=== PATIENT | female | born 1970 | race Caucasian/White ===

== ENCOUNTER 2016-09-25 11:58 | Inpatient (IN) | payer BC, OTHER ==
[~2016-09-25] VITALS: Ht 180.3 cm; Wt 172.4 kg
--- NOTE | ~2016-09-25 | HC ---
[facility] [place] [address] CONSULTATION Name: RUSS CROOKS Room #: 446-P ADM IN M.R.#: [id number] Admission: 09/25/16 Attend Phys: Pierre Payne MD Discharge: Date of : 68 Report #: [id number] THIS REPORT FOR: //name// CC: [facility] physician/PCP Pierre Payne REASON FOR CONSULTATION: I was asked by Dr. Pierre Payne to evaluate the patient concerning infected pancreatic pseudocyst. 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 Six weeks ago, she developed acute abdominal pain and was evaluated at [facility] where she was diagnosed with acute pancreatitis. 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 She developed infected pancreatic pseudocyst. She had needle aspiration on 2 attempts with confirmation of bacteria. She did not know the organisms. She has been treated with meropenem. She was told by infectious diseases that she would be on this medication for at least 3 weeks. The exact timing is not clear to me at this point. She denied any fever, chills or sweats. She has had aversion to food. She has been receiving TPN for support. Because of this issue, she was transferred to [facility] from [facility] for a J-tube placement. Tube was placed yesterday. Postoperatively, she has been fairly stable with 1 low grade fever episode. No cough or sputum production. Continues to have abdominal pain and tenderness. She has indwelling Mahajan catheter postoperatively. Before this, she was voiding without issue. Stools have been minimal. No rashes. She did develop some pressure wounds to her feet, which were superficial. REVIEW OF SYSTEMS: Otherwise, unremarkable. She does have upper extremity PICC. PAST MEDICAL HISTORY: MS, obesity, rosacea, hypertension, migraine headaches. ALLERGIES: DEXAMETHASONE with acne. MEDICATIONS: As noted on APR including meropenem. FAMILY HISTORY: Noncontributory. 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 PHYSICAL EXAMINATION: VITAL SIGNS: Afebrile, hemodynamically stable. GENERAL: She is alert, cooperative and pleasant, sitting up in a chair, conversant, morbidly obese. IV access unremarkable. CHEST: Clear. HEART: Regular, without murmur. [address] [address] CONSULTATION Name: RUSS CROOKS Room #: 446- ADM IN M.R.#: [id number] Admission: 09/25/16 Attend Phys: Pierre Payne MD Discharge: Date of : 68 Report #: [id number] ABDOMEN: Diffusely tender, mostly in the epigastric region. Left abdomen jejunostomy feeding tube was intact. EXTREMITIES: Unremarkable. Indwelling Mahajan catheter. LABORATORY STUDIES: From September 21, creatinine 0.6, liver function tests normal. From September 19, hemoglobin 8.2, white count 5.4, platelet count 249,000. Stool for VRE was positive as a screening. IMPRESSION: A 45-year-old with what appears to be necrotizing pancreatitis, complicated by infected pseudocyst, very slow to improve. I am yet to confirm that she actually had necrotizing pancreatitis. Issue now is duration of her antibiotic coverage. She now has a jejunostomy feeding tube, which should help for nutritional status. Having been at least 2-3 weeks since her last imaging study, I would recommend that we repeat MRI scan and compare to her previous study. We will follow up laboratory studies including CBC, CMP, pancreatic enzymes. Have called for her microbiology reports from [facility] and we will determine length of therapy. <ELECTRONICALLY SIGNED> By: Maykel Meléndez MD 09/27/16 0951 1222 1303 Maykel Meléndez MD /nt
--- NOTE | ~2016-09-25 | O ---
[facility] [place] [address] OPERATIVE REPORT Name: RUSS CROOKS Room #: 446-P ADM IN M.R.#: [id number] Admission: 09/25/16 Attend Phys: Charlene Lo Discharge: Date of : 68 Report #: [id number] THIS REPORT FOR: //name// CC: Ovidio Meléndez [facility] physician/PCP DATE OF SERVICE: 09/30/2016 PREOPERATIVE DIAGNOSIS: Huge pancreatic pseudocyst. POSTOPERATIVE DIAGNOSIS: Huge pancreatic pseudocyst with necrotic fat at the base of the pseudocyst. PROCEDURES PERFORMED: Cystogastrostomy and debridement of necrotic fat through a mini laparotomy incision. SURGEON: Pierre Payne M.D. ANESTHESIA: General. COMPLICATIONS: None. ESTIMATED BLOOD LOSS: 70 mL. DESCRIPTION OF PROCEDURE: The patient was put under general anesthesia, abdomen was prepped and draped in a sterile fashion. The mass was palpable, located in the epigastrium. The incision was made about two fingerbreadths beneath the costal margin. This was a subcostal incision made more on the left side. The incision was about 3 inches in length. After incising through the skin and subcutaneous tissue, the anterior rectus sheath was incised sharply with knife, muscle was freed and cauterized over a Army Danube. There was a vessel that was bleeding. This was ligated with 3-0 Vicryl tie. Posterior sheath was then opened, the peritoneum was quite thick and it did take a while to get through the peritoneum. Once I went through the peritoneum, there was ascites as yellowish fluid. The stomach was visualized. The upper part was actually free. Inferiorly to the incision, there were adhesions. I could see the distal third of the stomach easily. I did not free the adhesions lower down. The ascitic fluid was suctioned out. A 3-0 Nurolon suture placed on the area between the body and the antrum. The serosa was then incised over the anterior wall. An opening was made in the anterior wall of the stomach measuring about 2 cm. Cautery was used to obtain hemostasis. The posterior wall was then identified, the pseudocyst was palpated posterior to this. A needle was placed through the posterior gastric wall into the pseudocyst and the typical grayish fluid was found. The fluid was sent for culture and also amylase level. The posterior mucosal wall was cauterized. The wall was then spread with hemostat all the way [facility] [address] [place] [address] OPERATIVE REPORT Name: DAKSHARUSS Room #: 446-P ADM IN M.R.#: [id number] Admission: 09/25/16 Attend Phys: Charlene Lo Discharge: Date of : 68 Report #: [id number] through the back wall of the stomach and then through the pseudocyst wall. A large amount of fluid was evacuated through this opening and just kept pouring out. This was suctioned out. After the fluid was taken out, the wall was opened up to about 4 cm opening; 3-0 PDS was placed along the wall and the suture was performed of the full thickness of the gastric wall and the pseudocyst wall. Locking suture may need for hemostasis. The pseudocyst in the posterior gastric wall has fused to each other. There was quite a bit of necrotic debris that was visualized. This was seen on MRI. I started out removing the looser stuff and then directly under the opening there was a thick fatty necrotic area that eventually I was able to free up and remove it. Really no bleeding was found during this procedure. The pseudocyst cavity was completely evacuated and pretty well cleaned out. Irrigation was performed. The cystogastrostomy is well formed. The anterior wall of the stomach was then closed. A 3-0 Vicryl was then used to close the anterior wall in a seromuscular mucosal layer. This was a running 3-0 Vicryl suture. A 3-0 Nurolon was then sutured on the anterior wall in a seromuscular layer. The right upper quadrant was irrigated and cleaned. The posterior fascia was closed with 0 PDS in running fashion. The anterior fascia and the midline fascia was closed with 0 Prolene in a running fashion. Skin was irrigated and then closed with 4-0 PDS. Dermabond was used. The patient was awakened and taken to recovery room. He tolerated the procedure well. By: [id number] Pierre Payne MD /nt
--- NOTE | ~2016-09-25 | D ---
[facility] [place] [address] DISCHARGE SUMMARY Name: DAKSHARUSS Room #: 446-P [facility] IN M.R.#: [id number] Admission: 09/25/16 Attend Phys: Charlene Lo Discharge: 10/08/16 Date of : 68 Report #: [id number] THIS REPORT FOR: //name// CC: Arun Meléndez [facility] physician/PCP DATE OF SERVICE: 10/08/2016 FINAL DIAGNOSES: 1. Pancreatic pseudocyst. 2. Anemia of chronic disease. 3. Diarrhea. 4. Morbid obesity. HOSPITAL COURSE: The patient was admitted with abdominal pain. She had completed a course of treatment with antibiotics and bowel rest for pancreatic pseudocyst diagnosed at an outlying hospital and then treated at an LTAC facility. Here, a J-tube was placed for feeding as she was not tolerating much oral intake. Followup studies of the abdomen were obtained. Eventually, Dr. Payne performed a surgical intervention regarding to drain the cyst. Please see that operative note. Postoperatively, she had no abdominal pain, was having diarrhea due to tube feeding, additional adjustments were made. Dr. Maykel Meléndez followed and as cultures were negative, antibiotics were discontinued. Therapy was begun. She was still weak and was not ready to return home. Ultimately, she transferred to a snf facility. She will be on J-tube feedings as tolerated and advance her diet as tolerated. Pancreatic enzymes were added. DISPOSITION: She is being transferred to a skilled facility under the care of the inhouse physician. I have signed her transfer orders, medications list and she will need follow up with her primary after discharge from skilled. <ELECTRONICALLY SIGNED> By: Donte Herring MD 10/10/16 0812 0950 1021 Donte Herring MD /nt
--- NOTE | ~2016-09-25 | EKG ---
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
--- NOTE | ~2016-09-25 | O ---
[facility] [place] [address] OPERATIVE REPORT Name: RUSS CROOKS Room #: 446-P ADM IN M.R.#: [id number] Admission: 09/25/16 Attend Phys: Charlene Lo Discharge: Date of : 68 Report #: [id number] THIS REPORT FOR: //name// CC: Ovidio Meléndez MD [facility] physician/PCP Pierre Payne DATE OF SERVICE: 09/25/2016 PREOPERATIVE DIAGNOSIS: Severe acute pancreatitis, unable to eat, need jejunostomy feeding tube. POSTOPERATIVE DIAGNOSIS: Severe acute pancreatitis, unable to eat, need jejunostomy feeding tube. PROCEDURE PERFORMED: Placement of laparoscopic jejunostomy. SURGEON: Pierre Payne M.D. COMPLICATIONS: None. ESTIMATED BLOOD LOSS: Minimal. Tube placed: 12-Belarusian feeding tube in the jejunum. DESCRIPTION OF PROCEDURE: With the patient under general anesthesia, abdomen was prepped and draped in sterile fashion. The patient received 2 grams of Ancef. The timeout was performed. Curvilinear incision was made infraumbilically after anesthetizing the skin with 0.25% Marcaine. A semi-open laparoscopic approach was performed. The fascia was opened under visualization, 0 Vicryl stitches were placed on the fascia, with the 0 Vicryl suture lifted anteriorly, Veress needle was then placed through peritoneum. Abdominal cavity was insufflated with CO2. After creating pneumoperitoneum pressure of 16, 11 mm trocar was placed in the fascia defect. It is in the omentum and the omentum is adhesed. The trocars maneuvered and was able to find a free space. A 5 mm trocar was placed in the left abdomen, lower quadrant. Another one was placed in the lower quadrant on the right side. The upper abdomen is with omentum adhesed to the wall. This is from the pancreatitis. There was serous fluid in the abdomen. There is a little bit of oozing from the omentum. This was cauterized and controlled. The small bowel was then identified underneath the omentum. The ligament of Treitz was I believe found and it is harder to be 100% sure, the bowel was somewhat adhesed up in that area. The bowel was followed distally. The side of the small bowel was chosen fairly about maybe a foot and half from the ligament of Treitz. The bowel was able to be brought up against the wall without difficulty. Supplied laparoscopic J-tube kit was used with T-fasteners. The T-fasteners were placed at the 9 and 6 o'clock position. The [address] [address] OPERATIVE REPORT Name: RUSS CROOKS Room #: 446-P ADM IN M.R.#: [id number] Admission: 09/25/16 Attend Phys: Charlene Lo Discharge: Date of : 68 Report #: [id number] T-fasteners for the 3 o'clock position, the last one did not come out right, but it was already out of the needle by the time I pulled it through, so I did have to remove that. I placed a 3-0 Nurolon sutures through the bowel and brought it out through the wall, the stitch. However, when I started to dilate it, ____ apart. Once I had the bowel up against the wall with the T-fasteners, a needle was placed through the middle of the T-fasteners sheron shaped sutures. This was placed in the bowel without difficulty. I was able to place air through the needle, which inflated the bowel well. A wire was then threaded through the needle without resistance. I then started to dilate the abdominal wall and the bowel with the supply dilator that is when the 3-0 Nurolon came out of the bowel wall. I was able to continue to dilate it in to get the 12-Belarusian ____ through the Peel-Apart sheath. The sheath was peeled apart leaving the tube in the bowel. The bowel was about 12 inches going in what I perceived to be the distal direction. The small bowel wall where a 3-0 Nurolon suture pull through, ____ I do not think ____ thickness, this was closed with 3-0 Nurolon in interrupted fashion. Another 3-0 Nurolon was then placed lateral to this and then this was brought out and then was able to be tied up against the wall. The rest of the T-fasteners were also able to be brought up against the wall easily without tension and then the supplied little disc of the T-fastener was closed holding the stitch in place. The buttress of the J-tube was then brought down to the skin level. The balloon part of the tube was external, not ____ to be used. The buttress was tied around the tube with 0 silk tie times 2. A 3-0 nylon was then used to tie down the buttress. We then sewed the buttress to the skin. A dye test was performed using a KUB. The dye test does show dye contrast that I placed through the J-tube in the bowel lumen lining the bowel. The tube was then flushed with about 5 mL of saline. A 4 x 4 was placed over this. The tube was curled over the 4 x 4 and then ABD was put over this and tape in place. Prior to this, the fascia defect was closed with 0 Vicryl [id number] times 2. Skin was irrigated, skin at the umbilicus side was closed with 4-0 PDS. The two small 5 mm trocar site was closed with 5-0 PDS. Steri-Strips applied. Band-Aids were used for dressing. The patient tolerated the procedure well and taken to recovery room. She was extubated. <ELECTRONICALLY SIGNED> By: Pierre Payne MD 09/29/16 1821 1752 1908 Pierre Payne MD /nt
[~2016-09-25 11:58] MED LIST: ALLERGY10 M1 PO; AMANTADINE 100100 MG PO; BAZA CR.1 EA TP; BOOST237 M1 PO; CLINIMIX 5%-12000 ML IV; COLACE100 MG PO; ENOXAPARIN40 MG/0.1 SUBQ; FLONASE 0.05%50 MCG NASAL; IBUPROFEN 400400 M2 PO; LASIX 40 MG TAB40 M2 PO; LIDODERM 5%1 PATC1 TRANSDERM; MEROPENEM-500 MG/50 IVPB; METOPROLOL TAR100 MG PO; MICONAZOLE NITR10 GM TOP; NORVASC10 MG PO; PERCOCET PO; PROTONIX40 M1 PO; ZINC OXIDE57 GM TOP; [UNRECOGNIZED DRUG - OTHER] IV; [UNRECOGNIZED DRUG - OTHER] TOP
[2016-09-25 13:49] VITALS: BP 154/96
[2016-09-25 18:00] VITALS: BP 147/93
[2016-09-25 18:26] VITALS: BP 144/88
[2016-09-25 19:20] VITALS: BP 140/85
[2016-09-25 21:37] VITALS: BP 151/93
[2016-09-25 22:30] VITALS: BP 146/83
[2016-09-26 01:01] VITALS: BP 144/81
[2016-09-26 05:27] VITALS: BP 136/85
[2016-09-26 07:51] VITALS: BP 133/74
[2016-09-26 16:00] VITALS: BP 137/80
[2016-09-26 20:01] VITALS: BP 148/82
[2016-09-27 04:55] VITALS: BP 130/70
[2016-09-27 05:39] LABS: HEMATOCRIT 27.4 % (37.0-47.0); HEMOGLOBIN 8.6 gm/dL (12.0-15.0); MCH 24.7 pg (26.0-34.0); MCHC 31.3 g/dL (28.0-37.0); MCV 78.9 fL (80.0-100.0); PLATELET COUNT 242 thou/uL (150-400); RBC 3.47 mil/uL (4.20-5.00); RDW 17.6 % (10.5-14.5); WBC 9.1 thou/uL (4.0-11.0)
[2016-09-27 05:48] LABS: MANUAL DIFF YES
[2016-09-27 05:59] LABS: ALBUMIN 1.9 g/dL (3.4-5.0); CALCIUM 8.6 mg/dL (8.5-10.1); CREATININE 0.9 mg/dL (0.6-1.0); POTASSIUM 4.1 mmol/L (3.5-5.1); TOTAL BILIRUBIN 0.5 mg/dL (<0.1-1.0); TOTAL PROTEIN 6.4 g/dL (6.4-8.2)
[2016-09-27 06:52] LABS: PLATELET ESTIMATE NORMAL; TOTAL CELL COUNT 100
[2016-09-27 09:24] VITALS: BP 148/71
[2016-09-27 16:27] VITALS: BP 139/72
[2016-09-27 19:05] VITALS: BP 135/80; BP 139/72
[2016-09-28 05:51] VITALS: BP 145/80
[2016-09-28 08:00] VITALS: BP 146/75
[2016-09-28 16:00] VITALS: BP 124/72
[2016-09-28 20:03] VITALS: BP 143/75
[2016-09-29 06:42] VITALS: BP 145/74
[2016-09-29 08:47] VITALS: BP 155/84
[2016-09-29 11:50] LABS: HEMATOCRIT 26.9 % (37.0-47.0); HEMOGLOBIN 8.6 gm/dL (12.0-15.0); MCH 24.4 pg (26.0-34.0); MCV 76.3 fL (80.0-100.0); RBC 3.52 mil/uL (4.20-5.00); RDW 17.8 % (10.5-14.5); WBC 7.6 thou/uL (4.0-11.0)
[2016-09-29 11:57] LABS: CALCIUM 8.6 mg/dL (8.5-10.1); CREATININE 0.8 mg/dL (0.6-1.0); POTASSIUM 3.9 mmol/L (3.5-5.1)
[2016-09-29 16:08] VITALS: BP 146/76
[2016-09-29 20:41] VITALS: BP 150/85
[2016-09-30 06:00] VITALS: BP 123/75
[2016-09-30 09:36] VITALS: BP 146/76
[2016-09-30 17:20] VITALS: BP 131/80
[2016-09-30 20:37] VITALS: BP 147/56
[2016-10-01 02:04] VITALS: BP 126/46
[2016-10-01 06:23] LABS: HEMATOCRIT 27.8 % (37.0-47.0); HEMOGLOBIN 8.6 gm/dL (12.0-15.0); MCH 23.7 pg (26.0-34.0); MCHC 30.9 g/dL (28.0-37.0); MCV 76.6 fL (80.0-100.0); RBC 3.63 mil/uL (4.20-5.00); RDW 18.8 % (10.5-14.5); WBC 12.4 thou/uL (4.0-11.0)
[2016-10-01 06:39] LABS: ALBUMIN 1.7 g/dL (3.4-5.0); CALCIUM 8.7 mg/dL (8.5-10.1); CREATININE 0.8 mg/dL (0.6-1.0); POTASSIUM 3.8 mmol/L (3.5-5.1); TOTAL BILIRUBIN 0.6 mg/dL (<0.1-1.0); TOTAL PROTEIN 6.9 g/dL (6.4-8.2)
[2016-10-01 08:00] VITALS: BP 142/71
[2016-10-01 11:09] LABS: BODY FLUID AMYLASE 1808 U/L (())
[2016-10-01 16:00] VITALS: BP 124/67
[2016-10-01 20:25] VITALS: BP 149/78
[2016-10-02 04:30] VITALS: BP 123/71
[2016-10-02 07:39] VITALS: BP 146/75
[2016-10-02 15:32] LABS: CALCIUM 8.7 mg/dL (8.5-10.1); CREATININE 0.8 mg/dL (0.6-1.0); POTASSIUM 3.8 mmol/L (3.5-5.1)
[2016-10-02 16:08] VITALS: BP 138/63
[2016-10-02 20:05] VITALS: BP 141/74
[2016-10-03 04:55] VITALS: BP 138/76
[2016-10-03 06:58] LABS: HEMATOCRIT 22.5 % (37.0-47.0); HEMOGLOBIN 7.2 gm/dL (12.0-15.0); MCH 24.3 pg (26.0-34.0); MCHC 32.2 g/dL (28.0-37.0); MCV 75.4 fL (80.0-100.0); RBC 2.98 mil/uL (4.20-5.00); RDW 18.9 % (10.5-14.5); WBC 9.7 thou/uL (4.0-11.0)
[2016-10-03 07:06] LABS: CALCIUM 8.8 mg/dL (8.5-10.1); CREATININE 0.7 mg/dL (0.6-1.0); POTASSIUM 3.7 mmol/L (3.5-5.1)
[2016-10-03 16:14] VITALS: BP 114/65
[2016-10-03 20:29] VITALS: BP 138/80
[2016-10-04 05:30] VITALS: BP 129/75
[2016-10-04 08:00] VITALS: BP 110/56
[2016-10-04 10:07] VITALS: BP 132/70
[2016-10-04 15:44] VITALS: BP 148/71
[2016-10-04 19:53] VITALS: BP 130/81
[2016-10-05 03:46] VITALS: BP 129/82
[2016-10-05 08:17] VITALS: BP 146/72
[2016-10-05 17:54] VITALS: BP 132/69
[2016-10-05 19:50] VITALS: BP 140/73
[2016-10-06 04:55] VITALS: BP 119/69
[2016-10-06 05:06] LABS: HEMATOCRIT 22.3 % (37.0-47.0); HEMOGLOBIN 7.1 gm/dL (12.0-15.0); MCH 23.7 pg (26.0-34.0); MCHC 31.9 g/dL (28.0-37.0); MCV 74.3 fL (80.0-100.0); RDW 19.4 % (10.5-14.5); WBC 6.8 thou/uL (4.0-11.0)
[2016-10-06 05:13] LABS: CALCIUM 8.6 mg/dL (8.5-10.1); CREATININE 0.8 mg/dL (0.6-1.0); POTASSIUM 3.7 mmol/L (3.5-5.1)
[2016-10-06] MEDS ORDERED: PERCOCET PO (08:35)
[2016-10-06 09:52] VITALS: BP 155/89
[2016-10-06 16:25] VITALS: BP 132/68
[2016-10-06 17:04] VITALS: BP 140/75
[2016-10-06 19:45] VITALS: BP 135/81
[2016-10-07 03:25] VITALS: BP 131/71
[2016-10-07 08:00] VITALS: BP 129/67
[2016-10-07 16:00] VITALS: BP 133/77
[2016-10-07 20:05] VITALS: BP 146/81
[2016-10-08 06:06] VITALS: BP 125/65
[2016-10-08 09:04] VITALS: BP 129/76
[2016-10-08] MEDS ORDERED: CREON DR 24,001 EACH PO (09:25)
== END 2016-10-08 16:30 | DRG 423 ==
LOC: OR 11:58 → 4S 18:15
PROVIDERS: Internal Medicine; Internal Medicine Geriatric Medicine; Specialist; Surgery
PROC: 0DHA3UZ Insertion of Feeding Device into Jejunum, Percutaneous Approach (ICD-10-PCS; principal; 2016-09-25)
PROC: B548ZZA Ultrasonography of Superior Vena Cava, Guidance (ICD-10-PCS; 2016-09-25)
PROC: 02HV33Z Insertion of Infusion Device into Superior Vena Cava, Percutaneous Approach (ICD-10-PCS; 2016-09-25)
PROC: 0JB80ZZ Excision of Abdomen Subcutaneous Tissue and Fascia, Open Approach (ICD-10-PCS; 2016-09-30)
PROC: 0D9600Z Drainage of Stomach with Drainage Device, Open Approach (ICD-10-PCS; 2016-09-30)
DX: K86.3 Pseudocyst of pancreas (principal); K85.91 Acute pancreatitis with uninfected necrosis, unspecified; Z68.43 Body mass index [BMI] 50.0-59.9, adult; E66.01 Morbid (severe) obesity due to excess calories; D63.8 Anemia in other chronic diseases classified elsewhere; I10 Essential (primary) hypertension; G43.909 Migraine, unspecified, not intractable, without status migrainosus; Z88.8 Allergy status to other drugs, medicaments and biological substances
CPT/HCPCS: 10100; 50010; 50101; 50386; 50403; 50411; 50455; 50555; 50558; 51489; 51990; 53307; 53310; 54022; 54118; 56462; 56524; 56525; 56526; 56527; 56528; 62110; 62900; 70005

== ENCOUNTER → 2016-11-12 | Outpatient (CLI) | payer BC, OTHER ==
[~2016-11-12] MED LIST changes: +CREON DR 24,001 EACH PO
[2016-11-12 10:11] LABS: ABSOLUTE NEUTROPHILS 9.5 thou/uL (1.4-8.2); BASOPHILS 0.5 % (0.0-2.0); EOSINOPHILS 1.3 % (0.0-3.0); HEMATOCRIT 35.1 % (37.0-47.0); HEMOGLOBIN 10.8 gm/dL (12.0-15.0); LYMPHOCYTES 24.3 % (24.0-44.0); MCH 22.5 pg (26.0-34.0); MCHC 30.8 g/dL (28.0-37.0); MONOCYTES 6.1 % (1.0-8.0); PLATELET COUNT 417 thou/uL (150-400); POLYS 67.8 % (36.0-66.0); RBC 4.81 mil/uL (4.20-5.00); RDW 19.4 % (10.5-14.5)
[2016-11-12 10:12] LABS: MANUAL DIFF NO
[2016-11-12 10:24] LABS: CALCIUM 10.3 mg/dL (8.5-10.1); CREATININE 1.4 mg/dL (0.6-1.0); POTASSIUM 3.4 mmol/L (3.5-5.1)
[2016-11-12 10:29] LABS: ALBUMIN 3.3 g/dL (3.4-5.0); TOTAL BILIRUBIN 0.6 mg/dL (<0.1-1.0); TOTAL PROTEIN 8.4 g/dL (6.4-8.2)
== END ==
LOC: CAT 09:14 → RAD 09:19 → CAT 09:19
PROVIDERS: Surgery
DX: K85.90 Acute pancreatitis without necrosis or infection, unspecified (principal); R06.02 Shortness of breath; R91.8 Other nonspecific abnormal finding of lung field